=== PATIENT | male | born 1955 | race Hispanic/Latino ===

== ENCOUNTER 2017-07-25 15:00 | Inpatient (IN) | payer OTHER ==
[~2017-07-25] VITALS: Ht 167.6 cm; Wt 65.7 kg
[2017-07-25 15:37] VITALS: BP 161/93
[2017-07-25 15:38] LABS: APPEARANCE,URINE Clear (CLEAR); BILIRUBIN,URINE Negative (NEGATIVE); COLOR,URINE Yellow (YELLOW); GLUCOSE, URINE (UA) Negative (NEGATIVE); KETONES,URINE Negative (NEGATIVE); LEUKOCYTE ESTERASE ,URINE Negative (NEGATIVE); NITRATE,URINE Negative (NEGATIVE); OCCULT BLOOD,URINE Small (NEGATIVE); PROTEIN,URINE Negative (NEGATIVE); UROBILINOGEN,URINE 0.2 mg/dL (0.2-1.0)
[2017-07-25 15:46] LABS: WBC,URINE 0-1 /HPF (0-1)
[2017-07-25 15:47] LABS: BACTERIA,URINE Rare /HPF (None Seen); MUCUS,URINE Rare LPF (None Seen); SQUAMOUS EPITHELIAL CELL,UR Few /HPF (0-2)
[2017-07-25] MEDS ORDERED: ROSU10TA27 PO (15:52)
[2017-07-25] MEDS ORDERED: LOSA1TAB54 PO (15:52)
[2017-07-26] VITALS (22 sets, daily range): BP systolic 95–156; BP diastolic 47–96
[2017-07-26] MEDS ORDERED: LACTATED RINGERS 1000ML 1,000 ML IV ONE (07:08)
[2017-07-26] MEDS: CEFAZOLIN SODIUM 1 GM VIAL IVP SCH ×4 (07:15→23:09)
[2017-07-26] MEDS ORDERED: NEOSTIGMINE 5MG/5ML SYR IV ONE (08:02)
[2017-07-26] MEDS ORDERED: GLYCOPYRROLATE 0.2 MG/ML 5 ML VIAL ONE (08:02)
[2017-07-26] MEDS ORDERED: DEXAMETHASONE SOD PHOSPHATE 10MG/ML 1ML VIAL ONE (08:02)
[2017-07-26] MEDS ORDERED: ONDANSETRON HCL 4 MG/2 ML VIAL ONE (08:02)
[2017-07-26] MEDS ORDERED: SODIUM CHLORIDE FOR INHALATION 3 ML VIAL.NEB. IH ONE (08:02)
[2017-07-26] MEDS ORDERED: PHENYLEPHRINE HCL 10 MG/ML 1ML VIAL IV ONE (08:02)
[2017-07-26] MEDS ORDERED: SODIUM CHLORIDE 0.9% 10 ML VIAL ONE (08:02)
[2017-07-26] MEDS ORDERED: ROCURONIUM BROMIDE 10MG/1ML 5ML VL ONE (08:02)
[2017-07-26] MEDS ORDERED: PROPOFOL 10 MG/ML 20ML VIAL IV ONE ×2 (08:04→08:07)
[2017-07-26] MEDS ORDERED: MIDAZOLAM HCL 1 MG/ML 2ML VIAL ONE (08:04)
[2017-07-26] MEDS ORDERED: FENTANYL CITRATE PF 50 MCG/1 ML 5ML AMP IV ONE (08:05)
[2017-07-26] MEDS ORDERED: ROPIVACAINE 0.5% 5MG/ML 30ML IJ ONE (08:09)
[2017-07-26] MEDS ORDERED: CEFAZOLIN SODIUM 1 GM VIAL ONE (08:16)
[2017-07-26] MEDS ORDERED: TRANEXAMIC ACID 1000MG/10ML IV ONE (08:16)
[2017-07-26] MEDS ORDERED: BUPIVACAINE/PF 0.25% 30ML VIAL IJ ONE (08:36)
[2017-07-26] MEDS ORDERED: EPINEPHRINE 1 MG/ML AMPULE ONE (08:40)
[2017-07-26] MEDS ORDERED: LIDOCAINE HCL-MPF 1% 2ML VIAL IVP PRN (10:15)
[2017-07-26] MEDS ORDERED: TRAMADOL HCL 50 MG TABLET PO PRN (10:15)
[2017-07-26] MEDS ORDERED: POTASSIUM CHLORIDE 10% ELIXIR 20 MEQ/15 ML UDCUP PO PRN (10:15)
[2017-07-26] MEDS ORDERED: CALCIUM CARBONATE 500 MG TABLET PO PRN (10:15)
[2017-07-26] MEDS ORDERED: DiphenhydrAMINE HCL 50 MG/ML VIAL IVP PRN (10:15)
[2017-07-26] MEDS ORDERED: OXYCODONE HCL 5 MG TAB PO PRN (10:15)
[2017-07-26] MEDS ORDERED: TEMAZEPAM 15 MG CAPSULE PO PRN (10:15)
[2017-07-26] MEDS ORDERED: POTASSIUM CHLORIDE 20MEQ/100ML 100 ML IV PRN (10:15)
[2017-07-26] MEDS ORDERED: FERROUS FUMARATE 324 MG TABLET PO PRN (10:15)
[2017-07-26] MEDS ORDERED: ONDANSETRON HCL 4 MG/2 ML VIAL IVP PRN (10:15)
[2017-07-26] MEDS ORDERED: MEPERIDINE-PF 25 MG/ML SYG ONE ×2 (10:53→11:03)
[2017-07-26] MEDS: SODIUM CHLORIDE 0.9% 1000ML 1,000 ML IV SCH ×2 (11:41→20:24)
[2017-07-26] MEDS: KETOROLAC TROMETHAMINE 15MG/ML IV PRN (11:42)
[2017-07-26] MEDS: ACETAMINOPHEN EXTRA STRENGTH 500 MG TABLET PO SCH ×2 (11:43→17:49)
[2017-07-26] MEDS: OXYCODONE HCL 5 MG TAB PO PRN ×2 (13:52→17:48)
[2017-07-26] MEDS ORDERED: CEFAZOLIN 2GM / 50 ML 50 ML IV SCH (15:15)
[2017-07-26] MEDS: ASPIRIN 325 MG TABLET PO SCH (20:20)
[2017-07-26] MEDS: CELECOXIB 200 MG CAP PO SCH (20:20)
[2017-07-26] MEDS: FAMOTIDINE 20MG TAB 20 MG TAB PO SCH (20:21)
[2017-07-26] MEDS: PREGABALIN 25 MG CAP PO SCH (20:21)
[2017-07-26] MEDS ORDERED: ATORVASTATIN CALCIUM 20 MG TABLET PO SCH (21:00)
[2017-07-27] VITALS: BP 154/84
[2017-07-27] MEDS: ACETAMINOPHEN EXTRA STRENGTH 500 MG TABLET PO SCH ×3 (02:29→17:11)
[2017-07-27] MEDS: SODIUM CHLORIDE 0.9% 1000ML 1,000 ML IV SCH (02:29)
[2017-07-27 04:00] VITALS: BP 121/84
[2017-07-27 05:16] LABS: HEMATOCRIT 35.3 % (42-54); MEAN CORPUSCULAR HEMOGLOBIN 31.2 pg (27.0-33.0); MEAN CORPUSCULAR HGB CONC 35.1 g/dL (32.0-36.0); MEAN CORPUSCULAR VOLUME 88.8 fL (79-99); PLATELET COUNT (AUTO) 200 K/uL (130-400); RED BLOOD CELL COUNT(AUTO) 3.98 MIL/uL (4.50-6.20); RED CELL DISTRIBUTION WIDTH 12.9 % (11.0-15.5); WHITE BLOOD COUNT (AUTO) 11.8 K/uL (4.8-10.8)
[2017-07-27 05:25] LABS: CREATININE 0.9 mg/dL (0.5-1.5); POTASSIUM 3.5 mmol/L (3.5-5.1)
[2017-07-27] MEDS: POTASSIUM CHLORIDE 20 MEQ ERTAB PO PRN ×2 (06:27→08:27)
[2017-07-27] MEDS: FAMOTIDINE 20MG TAB 20 MG TAB PO SCH (08:26)
[2017-07-27] MEDS: PREGABALIN 25 MG CAP PO SCH (08:26)
[2017-07-27] MEDS: ASPIRIN 325 MG TABLET PO SCH (08:26)
[2017-07-27] MEDS: CELECOXIB 200 MG CAP PO SCH (08:27)
[2017-07-27] MEDS: OXYCODONE HCL 5 MG TAB PO PRN ×3 (08:29→17:50)
[2017-07-27] MEDS ORDERED: LOSARTAN/HYDROCHLOROTHIAZIDE 50-12.5MG TABLET PO SCH (09:00)
[2017-07-27] MEDS ORDERED: POLYETHYLENE GLYCOL 3350 17 GM POWD.PACK PO SCH (09:00)
[2017-07-27] MEDS ORDERED: TAMSULOSIN HCL 0.4 MG CAP.ER.24H PO SCH (09:00)
[2017-07-27 16:43] VITALS: BP 126/72
[2017-07-27] MEDS ORDERED: ASPI-1012 PO (18:00)
[2017-07-27] MEDS ORDERED: HYDR-309 PO (18:00)
[2017-07-27] MEDS: KETOROLAC TROMETHAMINE 15MG/ML IV PRN (19:20)
[2017-07-27 20:00] VITALS: BP 137/73
[2017-07-29] MEDS ORDERED: BISACODYL 10 MG SUPP.RECT RC PRN (10:15)
== END 2017-07-27 20:17 | disposition home health service (06) | DRG 470 ==
LOC: EDSTATUS 15:00 → DAHIP 07-26 06:30 → 4BH 07-26 11:13
PROVIDERS: ADMIT Orthopaedic Surgery; ATTEND Orthopaedic Surgery
PROC: 0SRD0J9 Replacement of Left Knee Joint with Synthetic Substitute, Cemented, Open Approach (ICD-10-PCS; principal; 2017-07-26 08:00)
DX: M17.12 Unilateral primary osteoarthritis, left knee (principal); G89.29 Other chronic pain; I10 Essential (primary) hypertension; Z82.49 Family history of ischemic heart disease and other diseases of the circulatory system
CPT/HCPCS: 36415; 80048; 81001; 85027; 88305; 88311; A4218; J0171; J0690; J1100; J1885; J2175; J2250; J2370; J2405; J2704; J2710; J2795; J3010; J3490; J7030; J7120